=== PATIENT | female | born 1995 | race Hispanic/Latino ===

== ENCOUNTER 2017-05-08 01:17 | Emergency (ER) | payer OTHER ==
[2017-05-08 01:57] LABS: #Basophils 0.1 thou/uL (0.0-0.2); #Lymphocytes 2.1 thou/uL (1.20-3.40); #Monocytes 0.7 thou/uL (0.11-0.59); #Neutrophils 7.4 thou/uL (1.40-6.50); %Basophils 0.9 % (0.0-1.0); %Eosinophils 0.1 % (0.0-10.0); %Lymphocytes 20.4 % (21.0-51.0); %Monocytes 6.4 % (0.0-10.0); %Neutrophils 72.3 % (42.0-75.0); Anisocytosis MODERATE=16-30 cells (100X) (0-5/hpf); BHCG - Serum Negative (NEGATIVE); Elliptocytes SLIGHT = 2-5 cells (100X) (0-1/hpf); Hemoglobin 12.1 g/dL (12.0-16.0); Hypochromia SLIGHT = 6-15 cells (100X) (0-5/hpf); MDiff Complete? YES; Mean Corpuscular HGB CONC 31.2 g/dL (32.0-36.0); Mean Corpuscular Hemoglobin 23.5 pg (27.0-31.0); Mean Corpuscular Volume 75.5 fl (81.0-99.0); Mean Platelet Volume 8.5 fL (7.4-10.4); PLT Morphology Comment Appears Adequate; Platelet Count 333 thou/uL (130-400); Pregs Control Bar Appear? YES (CONTROL BAR); RBC Distribution Width 15.3 % (11.5-14.5); Red Blood Cell (RBC) Count 5.14 mill/uL (4.20-5.40); Target Cells SLIGHT = 2-5 cells (100X) (0-1/hpf); Tear Drops SLIGHT = 2-5 cells (100X) (0-1/hpf); White Blood Cell (WBC) Count 10.2 thou/uL (4.8-10.8)
[2017-05-08 02:01] LABS: ALT (SGPT) 15 U/L (8-55); AST (SGOT) 24 U/L (5-34); Acetaminophen Less than 6.0 mcg/mL (10.0-30.0); Albumin 4.6 g/dL (3.5-5.0); Alcohol 148 mg/dL (Less than 10); Alkaline Phosphatase 89 U/L (40-150); Anion Gap 18 mmol/L (10-20); BUN (Urea Nitrogen) 5 mg/dL (7.0-18.7); Bilirubin, Total 0.2 mg/dL (0.2-1.2); Calc. Creatinine Clearance 0 mL/min (70-130); Calcium 9.7 mg/dL (7.8-10.44); Carbon Dioxide 20 mmol/L (22-29); Chloride 108 mmol/L (98-107); Estimated GFR-MDRD Greater than 90; Globulin 3.8 g/dL (2.4-3.5); Glucose 105 mg/dL (70-105); Potassium 3.5 mmol/L (3.5-5.1); Protein, Total 8.4 g/dL (6.0-8.3); Salicylate Less than 8.0 mg/dL (15.0-30.0); Sodium 142 mmol/L (136-145)
[2017-05-08 02:04] LABS: Amphetamine Not Detected (NotDetected); Barbiturates Screen Not Detected (NotDetected); Benzodiazepine Screen Not Detected (NotDetected); Cocaine Metabolite Screen Not Detected (NotDetected); Medtox Control Line Valid? VALID (VALID); Methadone Not Detected (NotDetected); Methamphetamine Not Detected (NotDetected); Opiate Screen Not Detected (NotDetected); Oxycodone Screen Not Detected (NotDetected); Phencyclidine (PCP) Not Detected (NotDetected); THC/Cannabinoid Screen Not Detected (NotDetected); Tricyclic Screen Not Detected (NotDetected)
[2017-05-08] MEDS ORDERED: Ondansetron HCl/PF 4 MG/2 ML Vial ONE (02:06)
[2017-05-08] MEDS ORDERED: Diazepam 2.5 MG GEL ONE ×2 (02:12→02:16)
[2017-05-08] MEDS ORDERED: Lorazepam 2 MG/ML VIAL ONE (02:17)
[2017-05-08] MEDS ORDERED: Valproate Sodium 500 MG/5 ML VIAL ONE ×2 (02:46→02:52)
[2017-05-08] MEDS ORDERED: Sodium Chloride 0.9% 100 ML ONE (02:52)
[2017-05-08] MEDS ORDERED: Dextrose 5 %-0.45 % NaCl 1,000 ML ONE (03:01)
== END 2017-05-08 03:19 | disposition short-term general hospital (02) ==
LOC: NAV ERS 01:17
DX: G40.401 Other generalized epilepsy and epileptic syndromes, not intractable, with status epilepticus (principal); F10.129 Alcohol abuse with intoxication, unspecified
CPT/HCPCS: 36415; 80053; 80306; 80307; 84443; 84703; 85025; 96361; 96374; 96375; 96376; J2060; J2405; J7042